=== PATIENT | male | born 1995 | race Caucasian/White ===

== ENCOUNTER 2016-07-09 16:31 | Emergency (ER) | payer SELFPAY ==
[~2016-07-09] VITALS: Ht 185.4 cm; Wt 95.3 kg
[~2016-07-09 16:31] MED LIST: ANAPROX DS550 MG PO; BIAXIN500 MG PO; CLARITIN10 MG PO; MOTRIN800 MG PO; MULTIVITAMIN1 CTB PO; ROBAXIN750 MG PO; TRAMADOL HCL50 MG PO; VICODIN 500 MG-1 TAB PO; Zofran4 MG PO
[2016-07-09 16:43] VITALS: BP 130/66
== END 2016-07-09 17:18 | disposition home or self-care (01) ==
LOC: ED 16:31
DX: H10.89 Other conjunctivitis (principal); F17.200 Nicotine dependence, unspecified, uncomplicated; Z79.899 Other long term (current) drug therapy; Z88.6 Allergy status to analgesic agent

== ENCOUNTER → 2016-12-07 | Outpatient (CLI) | payer OTHER ==
[2016-12-07 11:06] LABS: HEMATOCRIT 41.5 % (42.0-52.0); HEMOGLOBIN 14.3 g/dl (14.0-18.0); MEAN CELL VOLUME 87.7 fl (80.0-94.0); MEAN CORPUSCULAR HGB 30.2 pg (27.0-31.0); MEAN CORPUSCULAR HGB CONC 34.5 g/dl (33.0-37.0); MEAN PLATELET VOLUME 10.6 fl (9.6-12.3); RED BLOOD COUNT 4.73 10*6/uL (4.50-5.90); RED CELL DISTRI WIDTH 11.9 % (0-14.5); WHITE BLOOD COUNT 5.9 10*3/uL (4.8-10.8)
[2016-12-07 11:35] LABS: ALBUMIN 3.4 gm/dl (3.1-4.5); ALKALINE PHOSPHATASE 69 U/L (45-117); BUN 14 mg/dl (7-24); CHLORIDE 104 mmol/L (98-107); CHOLESTEROL 113 mg/dL (<200); CREATININE 0.81 mg/dL (0.70-1.30); HDL CHOLESTEROL 37 mg/dl (40-60); LDL CHOLESTEROL 57 mg/dL (9-159); POTASSIUM 4.2 mmol/L (3.5-5.1); SGOT/AST 19 IU/L (3-35); SGPT/ALT 21 U/L (12-78); SODIUM 139 mmol/L (136-145); TOTAL PROTEIN 7.8 gm/dL (6.4-8.2); TRIGLYCERIDES 93 mg/dl (<150); VLDL CHOLESTEROL 19 mg/dL (6-40)
== END | disposition home or self-care (01) ==
LOC: LAB 10:27
PROVIDERS: Family Medicine
DX: Z13.220 Encounter for screening for lipoid disorders (principal); R53.83 Other fatigue; R05 Cough; R53.1 Weakness; R79.89 Other specified abnormal findings of blood chemistry

== ENCOUNTER 2018-04-06 19:36 | Emergency (ER) | payer BC ==
[~2018-04-06] VITALS: Ht 182.8 cm; Wt 106.6 kg
[~2018-04-06 19:36] MED LIST changes: +LOMOTIL 2.5-0.1 EACH PO; +ZOFRAN4 MG PO
[2018-04-06 19:39] VITALS: BP 114/64
[2018-04-06] MEDS ORDERED: PENICILLIN VK500 MG PO (19:58)
[2018-04-06] MEDS ORDERED: NAPROSYN500 MG PO (19:58)
== END 2018-04-06 20:20 | disposition home or self-care (01) ==
LOC: ED 19:36
DX: K04.7 Periapical abscess without sinus (principal); Z88.6 Allergy status to analgesic agent; Z79.899 Other long term (current) drug therapy

== ENCOUNTER 2019-02-22 20:20 | Emergency (ER) | payer OTHER ==
[~2019-02-22] VITALS: Wt 108.9 kg
[2019-02-22 20:20] VITALS: BP 137/71
[~2019-02-22 20:20] MED LIST changes: +NAPROSYN500 MG PO; +PENICILLIN VK500 MG PO
[2019-02-22] MEDS ORDERED: TAMIFLU 75MG CA75 MG PO (22:48)
== END 2019-02-22 23:06 | disposition home or self-care (01) ==
LOC: ED 20:20
DX: J10.1 Influenza due to other identified influenza virus with other respiratory manifestations (principal); Z88.6 Allergy status to analgesic agent; Z79.2 Long term (current) use of antibiotics; Z79.899 Other long term (current) drug therapy

== ENCOUNTER 2021-09-30 21:38 | Emergency (ER) | payer OTHER ==
[~2021-09-30] VITALS: Ht 180.3 cm; Wt 90.7 kg
[~2021-09-30 21:38] MED LIST changes: +TAMIFLU 75MG CA75 MG PO
[2021-09-30 22:26] VITALS: BP 136/80
[2021-10-01 00:22] LABS: BASO % 0.3 % (0.0-1.0); EOS # 0.1 10*3/uL (0.0-0.4); EOS % 0.5 % (1.0-4.0); HEMATOCRIT 45.3 % (42.0-52.0); LYMPH # 0.5 10*3/uL (1.3-4.4); LYMPH % 4.3 % (27.0-41.0); MEAN CELL VOLUME 85.8 fl (80.0-94.0); MEAN CORPUSCULAR HGB 29.9 pg (27.0-31.0); MEAN CORPUSCULAR HGB CONC 34.9 g/dl (33.0-37.0); MEAN PLATELET VOLUME 9.8 fl (9.6-12.3); NEUT # 9.4 10*3/uL (2.3-7.9); NEUT % 85.4 % (47.0-73.0); PLATELET COUNT AUTOMATED 202 10*3/uL (130-400); RED BLOOD COUNT 5.28 10*6/uL (4.50-5.90); WHITE BLOOD COUNT 10.9 10*3/uL (4.8-10.8)
[2021-10-01 00:40] LABS: ALKALINE PHOSPHATASE 63 U/L (45-117); BUN 12 mg/dl (7-24); CHLORIDE 102 mmol/L (98-107); CREATININE 0.96 mg/dL (0.70-1.30); SGOT/AST 33 IU/L (3-35); SGPT/ALT 43 U/L (12-78); SODIUM 136 mmol/L (136-145); TOTAL PROTEIN 8.2 gm/dL (6.4-8.2)
[2021-10-01 03:35] LABS: BILIRUBIN Negative (Negative); BLOOD Trace-Lysed (Negative); CLARITY Clear (Clear); COLOR Yellow (Yellow); GLUCOSE Negative (Negative); KETONE Negative (Negative); LEUKO ESTERASE Negative (Negative); NITRITE Negative (Negative); SPECIFIC GRAVITY 1.015 (1.001-1.030); UROBILINOGEN 0.2 E.U./dl (0.0-1.0)
[2021-10-01 03:46] LABS: MUCOUS 1+; WBC 0-2 wbc/hpf (0-5)
[2021-10-01] MEDS ORDERED: CYCLOBENZAPRINE10 MG PO (04:57)
== END 2021-10-01 05:29 | disposition home or self-care (01) ==
LOC: ED 21:38
PROVIDERS: Emergency Medicine
DX: S39.012A Strain of muscle, fascia and tendon of lower back, initial encounter (principal); G43.909 Migraine, unspecified, not intractable, without status migrainosus; R11.2 Nausea with vomiting, unspecified; Z88.6 Allergy status to analgesic agent; X50.0XXA Overexertion from strenuous movement or load, initial encounter; Y93.89 Activity, other specified; Y92.89 Other specified places as the place of occurrence of the external cause; Y99.8 Other external cause status